=== PATIENT | female | born 1955 | race Caucasian/White ===

== ENCOUNTER → 2024-01-31 12:28 | Outpatient (REF) | payer MEDICARE, BC, SELFPAY | LOC: HWRAD 12:28 | PROVIDERS: ATTENDING PHYSICIAN Internal Medicine | DX: M54.50 Low back pain, unspecified (principal) | CPT/HCPCS: 72110 ==

== ENCOUNTER → 2024-05-15 10:52 | Outpatient (REF) | payer MEDICARE, BC, SELFPAY | LOC: HWRAD 10:52 | PROVIDERS: ATTENDING PHYSICIAN Internal Medicine | DX: M81.0 Age-related osteoporosis without current pathological fracture (principal) | CPT/HCPCS: 77080 ==

== ENCOUNTER → 2024-07-29 14:02 | Outpatient (REF) | payer MEDICARE, BC, SELFPAY | LOC: HWRAD 14:02 | PROVIDERS: ATTENDING PHYSICIAN Internal Medicine | DX: M25.511 Pain in right shoulder (principal) | CPT/HCPCS: 73030 ==

== ENCOUNTER → 2024-08-05 12:50 | Outpatient (REF) | payer MEDICARE, BC, SELFPAY | LOC: HWWDC 12:50 | PROVIDERS: ATTENDING PHYSICIAN Internal Medicine | DX: Z12.31 Encounter for screening mammogram for malignant neoplasm of breast (principal) | CPT/HCPCS: 77063; 77067 ==

== ENCOUNTER → 2024-09-04 06:49 | Outpatient (REF) | payer MEDICARE, BC, SELFPAY | LOC: MRI 3T 06:49 | PROVIDERS: ATTENDING PHYSICIAN Pain Medicine Interventional Pain Medicine; FAMILY PHYSICIAN Internal Medicine | DX: M54.16 Radiculopathy, lumbar region (principal) | CPT/HCPCS: 72148 ==

== ENCOUNTER → 2025-03-24 14:50 | Outpatient (REF) | payer MEDICARE, BC, SELFPAY | LOC: PAVMRI 14:50 | PROVIDERS: ATTENDING PHYSICIAN Specialist; FAMILY PHYSICIAN Internal Medicine | DX: M25.561 Pain in right knee (principal); Z96.651 Presence of right artificial knee joint | CPT/HCPCS: 73721 ==

== ENCOUNTER → 2025-09-08 10:18 | Outpatient (REF) | payer MEDICARE, BC, SELFPAY | LOC: RCS 10:18 | PROVIDERS: ATTENDING PHYSICIAN Internal Medicine Cardiovascular Disease; FAMILY PHYSICIAN Internal Medicine | DX: R55 Syncope and collapse (principal) | CPT/HCPCS: 93225; 93226 ==